=== PATIENT | female | born 1965 | race Caucasian/White ===

== ENCOUNTER 2017-07-28 20:56 | Emergency (ER) | payer OTHER ==
[~2017-07-28] VITALS: Ht 162.6 cm; Wt 64.8 kg
[2017-07-28 21:22] VITALS: TEMP 37.4; Ht 162.6 cm; Wt 64.8 kg
[2017-07-28] MEDS ORDERED: NORCO 5/325MG HOME PACK PO STA (21:55)
[2017-07-28] MEDS ORDERED: AMOXICIL/CLAVU 875MG HOME PACK PO STA (21:55)
[2017-07-28] MEDS ORDERED: CHLORASEPTIC 1.4% SOLN 180 ML BTL MT STA (21:55)
[2017-07-28] MEDS ORDERED: AMOX875T PO (21:58)
[2017-07-28] MEDS ORDERED: HYDR-5688 PO (21:58)
--- NOTE | 2017-07-28 21:59 | EMERGENCY ROOM VISIT NOTE ---
ED Visit Note First contact with patient: 21:44 CHIEF COMPLAINT: "Infection on right side of mouth to apply". HISTORY OF PRESENT ILLNESS: This 51-year-old female patient presented to the emergency department via private vehicle with a progressive toothache for past 3 days. The patient believes it is coming from left upper dentition where a filling fell out. The pain is now steady and severe and radiates to the face. The patient does not a dentist appointment set up, as she notes she cannot see a dentist until August 12 until she has insurance coverage. They rate their pain a 7/10. Denies facial swelling or fever. The patient denies any discharge from the mouth. She notes it radiates to the left eye and to the throat. REVIEW OF SYSTEMS: A 6 system review of systems was completed with positives and pertinent negatives listed in the HPI. ALLERGIES: As noted below MEDICATIONS: As noted below PMH: Asthma, bronchitis, pneumonia SOCIAL HISTORY: Patient lives locally PHYSICAL EXAM: Vitals are noted on the nurse's note and reviewed by myself. Vital signs stable. Temperature 37.4C orally. GENERAL: 51-year-old female, in no acute distress, nondiaphoretic, well-developed well-nourished. Mouth: The left upper tooth is very carious and the gum is swollen and tender around it , without any discharge or signs of an abscess. The remainder of the pharynx and tonsils are without erythema, edema, or exudate. The airway is patent. There is no facial swelling, cervical or submandibular lymphadenopathy. No pain with EOMs. The patient appears uncomfortable and in pain. The patient has overall fair dental hygiene. EARS: External auditory canals clear, tympanic membranes pearly valiente without erythema or effusion bilaterally. ED COURSE: Patient was seen and evaluated as above. There is no facial edema on my examination. The left upper dentition, around tooth #14 does elicit a fair amount of decay, with erythema. No evidence of abscess. No evidence of facial or orbital cellulitis. She communicates well without difficulty. No evidence of retropharyngeal or pharyngeal abscess. No evidence of Xander angina. I suspect she will do well with a course of Augmentin, as well as a short course of pain medication. She was educated upon management, and is to return with worsening symptoms. She is to follow with her dentist for definitive management. She was educated upon worrisome symptoms which to return , had questions of reddish, and was discharged home in good condition. She was given [place] for pain, Augmentin for the infection, and phenol spray for the sore throat. In the treatment of this patient controlled medication was utilized and therefore the [facility], Prescription Drug Monitoring Program website was utilized to look up this patient. No concerns were identified that would prohibit or alter my treatment decision. In the evaluation and treatment of this patient, the following differential diagnoses were considered: Periapical Abscess, Osteonecrosis of the Jaw, Dental Fracture, Dental Caries, Xander's Angina, Vincent's Angina, Facial Cellulitis. Current/Historical Medications Scheduled Amoxicillin & Pot Clavulanate (Augmentin 875-125 mg), 1 TAB PO BID Ascorbic Acid (Vitamin C), 500 MG PO DAILY Multiple Vitamins W/ Minerals (Womens One Daily), 1 TAB PO DAILY Scheduled PRN Albuterol (Ventolin Hfa), 2 PUFFS INH QID PRN for SOB/Wheezing Fluticasone Propionate (Nasal) (Flonase Allergy Relief), 2 SPRAYS [place] DAILY PRN for Allergy Symptoms Hydrocodone/Acetaminophen 5MG/325MG ([place] 5MG/325MG), 1-2 TABLET PO Q6H PRN for Pain Mmtujcfbjkgvh-Vfrgxdejyi-Umsca (Vicks Dayquil/Nyquil Cold), 1 DOSE PO UD PRN for Cold/Flu Symptoms Allergies Coded Allergies: Bee Venom (Verified Allergy, Severe, ANAPHYLAXIS, 07/28/17) Codeine (Verified Allergy, Intermediate, Itchiness, 07/28/17) Morphine (Verified Allergy, Intermediate, Itchiness, 07/28/17) Vital Signs Date Time Temp Pulse Resp B/P (MAP) Pulse Ox O2 Delivery O2 Flow Rate FiO2 07/28/17 22:20 61 20 128/76 98 07/28/17 21:22 37.4 62 20 136/70 96 Room Air Medications Administered Medications (Trade) Dose Ordered Sig/Nadine Route Start Time Stop Time Status Last Admin Dose Admin Amoxicillin/ Clavulanate Potassium (Augmentin 875MG Home Pack) 1 homepack UD STAT PO 07/28/17 21:55 07/28/17 21:58 DC 07/28/17 22:15 1 HOMEPACK Acetaminophen/ Hydrocodone Bitart ([place] 5/325mg Home Pack) 1 homepack UD STAT PO 07/28/17 21:55 07/28/17 21:58 DC 07/28/17 22:15 1 HOMEPACK Phenol (Chloraseptic 1.4% [place]) 1 sprays NOW STAT MT 07/28/17 21:55 07/28/17 22:04 DC 07/28/17 22:15 1 SPRAYS Departure Information Impression Primary Impression: Odontalgia Dispostion Home / Self-Care Condition GOOD Prescriptions Hydrocodone/Acetaminophen 5MG/325MG ([place] 5MG/325MG) Tab 1-2 TABLET PO Q6H Y for Pain, #15 TAB For Initial Treatment Prov: Neno Garcia PA-C 07/28/17 Amoxicillin & Pot Clavulanate (Augmentin 875-125 mg) 1 Tab Tab 1 TAB PO BID for 9 Days, #18 TAB Prov: Neno Garcia PA-C 07/28/17 Referrals La Aleman M.D. (PCP) Patient Instructions My [facility] Additional Instructions You have been treated in the Emergency Department for Dental Pain. You have received pain medicine in the emergency department which impairs your ability to operate a vehicle. It is illegal for you to drive after receiving these medicines. You have been prescribed NORCO to be used for pain control. This is a narcotic medication. You cannot drive or consume alcohol while on this medicine. This medicine should only be used for pain that cannot be controlled with over-the- counter pain medicines. PLEASE NO TYLENOL OR ACETAMINOPHEN WITH THIS You were prescribed AUGMENTIN to be taken every 12 hours. This is an antibiotic. All antibiotics have the potential to cause diarrhea. Stop this medication and contact a medical provider if you were to develop any significant adverse side effects including: wheezing, shortness of breath, passing out, vomiting, or a diffuse rash. Always take antibiotics as directed and COMPLETE the ENTIRE course regardless of the improvement of your symptoms. For pain control, you can use the following xlsp-peh-iyxazbr medicines (if >12 yo): - Regular strength (325mg/tab) Tylenol (acetaminophen) 2 tabs every 4-6 hours as needed. Do not exceed 12 tablets in a 24 hour period. Avoid taking more than 3 grams (3000 mg) of Tylenol per day. This includes any other sources of acetaminophen you may take on a regular basis. - Regular strength (200 mg/tab) Advil (ibuprofen) 1-2 tabs every 4-6 hours as needed. Do not exceed a dose of 3200 mg per day. Refrain from smoking cigarettes or using chewing tobacco until you have been evaluated by your dentist. Keeping beverages lukewarm and consuming soft foods can decrease your pain. Warm compresses over the affected area may offer some relief. You MUST seek evaluation of your dental pain by a dentist following your visit to the Emergency Department. The Emergency Department is not capable of treating dental issues long-term. You should call your dentist as soon as possible to make an appointment for evaluation of your dental pain. Return to the emergency department if you develop the following symptoms despite treatment course outlined above: fever, intractable pain, increased redness, swelling, or purulent discharge.
[2017-07-28] MEDS ORDERED: PRVHFAIN INH (22:19)
[2017-07-28] MEDS ORDERED: FLUT0.15 NAE (22:19)
[2017-07-28] MEDS ORDERED: MULT-240 PO (22:19)
[2017-07-28] MEDS ORDERED: PHEN1MIS16 PO (22:19)
[2017-07-28] MEDS ORDERED: ASCO500C3 PO (22:19)
[2017-07-28 22:20] VITALS: BP 128/76; PULSE 61; O2SAT 98
== END 2017-07-28 22:22 | disposition home or self-care (01) ==
LOC: C.EDB 20:59 → C.EDD 22:22
DX: K08.89 Other specified disorders of teeth and supporting structures (principal); J45.909 Unspecified asthma, uncomplicated; Z88.5 Allergy status to narcotic agent; Z91.030 Bee allergy status

== ENCOUNTER 2017-11-23 20:51 | Emergency (ER) | payer OTHER ==
[~2017-11-23 20:51] MED LIST: ASCO500C3 PO; FLUT0.15 NAE; HYDR-5688 PO; MULT-240 PO; PHEN1MIS16 PO; PRVHFAIN INH
[2017-11-23 21:06] VITALS: TEMP 37; Ht 162.6 cm
[2017-11-23] MEDS ORDERED: DIAZEPAM INJ 5 MG/ML 2 ML CARP IV STA (23:02)
[2017-11-23] MEDS ORDERED: FENTANYL CITRATE INJ 50 MCG/1 ML 2 ML VIAL IV ONE (23:15)
--- NOTE | 2017-11-23 23:30 | EMERGENCY ROOM VISIT NOTE ---
History Report prepared by Geovanna: Alfie Hernandez Under the Supervision of: Dr. Jeannette Cueto D.O. (Jeannette Cueto, DO) First contact with patient: 22:44 (Jeannette Cueto, DO) Chief Complaint: BACK PAIN Stated Complaint: BACK ACHE, WAIST, RIGHT ARM NUMB History of Present Illness The patient is a 52 year old female who presents to the Emergency Room with complaints of worsening, severe, lower back pain beginning last night. The patient states her discomfort wraps around to the front of her body through her hips and spreads down the front of her legs. She reports she went to sleep and woke up with the same pain. The patient notes her pain started radiating to her arms and neck. She states she was able to get out of bed today, but her symptoms worsened this evening. The patient reports she tried taking ibuprofen, but it did not help. She notes her whole right arm, right hand, and upper right leg are numb. The patient states she cannot move without intensifying her discomfort. She report she felt rundown and started taking probiotics. The patient notes she is not able to eat or drink anything either. She states the only thing she did different was sleep on the couch. The patient reports she fell on ice a month ago. She notes she has a history of a rotator cuff repair and does not know if that is the cause for her symptoms. The patient denies lifting anything odd, changing her activity, fevers, chills, numbness and tingling to her groin, trouble urinating, trouble moving her bowels, trying Tylenol, and a family history of rheumatoid problems. Source of History: patient Onset: last night Position: back (lower) Symptom Intensity: severe Timing: worsening Associated Symptoms: + neck pain, No fevers, No chills Note: Associated symptoms: pain radiating to her hips and the front of her legs, arm pain and numbness, right hand numbness, right leg is numb, inability to eat or drink Denies: lifting anything odd, changing her activities, numbness and tingling to her groin, trouble urinating, trouble moving her bowels (Jeannette Cueto, ) Review of Systems See HPI for pertinent positives & negatives. A total of 10 systems reviewed and were otherwise negative. (Jeannette Cueto, DO) Past Medical & Surgical Medical Problems: (1) Asthma (2) Bronchitis (3) PNA (pneumonia) (Arash Peters M.D.) Family History Patient reports no known family medical history. (Jeannette Cueto DO) Patient reports no known family medical history. (Arash Peters M.D.) Social History Smoking Status: Current Every Day Smoker Alcohol Use: none Marital Status: in relationship Housing Status: lives with significant other (Jeannette Cueto DO) Current/Historical Medications Scheduled Ascorbic Acid (Vitamin C), 500 MG PO DAILY Lidocaine (Lidocaine), 1 PATCH TD DAILY Multiple Vitamins W/ Minerals (Womens One Daily), 1 TAB PO DAILY Scheduled PRN Albuterol (Ventolin Hfa), 2 PUFFS INH QID PRN for SOB/Wheezing Diazepam (Valium), 5 MG PO Q8 PRN for Pain Fluticasone Propionate (Nasal) (Flonase Allergy Relief), 2 SPRAYS [place]ITLEY DAILY PRN for Allergy Symptoms Hydrocodon/Acetaminophen 5MG/300MG (Vicodin (5MG/300MG)), 1 TAB PO Q8 PRN for Pain Allergies Coded Allergies: Bee Venom (Verified Allergy, Severe, ANAPHYLAXIS, 11/23/17) Codeine (Verified Allergy, Intermediate, Itchiness, 11/23/17) Morphine (Verified Allergy, Intermediate, Itchiness, 11/23/17) Physical Exam Vital Signs Date Time Temp Pulse Resp B/P (MAP) Pulse Ox O2 Delivery O2 Flow Rate FiO2 11/24/17 02:47 58 18 121/76 98 11/24/17 01:52 52 18 116/71 96 Room Air 11/23/17 23:39 59 18 127/85 95 Room Air 11/23/17 21:06 37.0 72 18 122/66 95 Room Air (Arash Peters M.D.) Physical Exam GENERAL: alert, well appearing, well nourished, no distress, non-toxic EYE EXAM: normal conjunctiva, PERRL and EOM's grossly intact OROPHARYNX: no exudate, no erythema, lips, buccal mucosa, and tongue normal and mucous membranes are moist NECK: supple, no nuchal rigidity, no adenopathy, non-tender LUNGS: Clear to auscultation. Normal chest wall mechanics HEART: no murmurs, S1 normal and S2 normal ABDOMEN: abdomen soft, non-tender, normo-active bowel sounds, no masses, no rebound or guarding. HIP: Pain in the bilateral hip upon palpation. BACK: Back is symmetrical on inspection and there is no deformity, no midline tenderness, no CVA tenderness. SKIN: no rashes and no bruising UPPER EXTREMITIES: upper extremities are grossly normal. Subjective altered sensation to the right upper extremity. LOWER EXTREMITIES: No pitting edema. Sensory exam normal. MSK: Positive straight leg on the right, negative on left. Decreased ROM on the right secondary to pain. NEURO EXAM: Normal sensorium, cranial nerves II-XII intact, normal speech. (Jeannette Cueto, ) Medical Decision & Procedures ER Provider Diagnostic Interpretation: CT:Per my review, radiologist interpretation. CT ABDOMEN & PELVIS without contrast: Scattered fluid in small bowel loops, nonspecific, can be seen with enteritis in the appropriate clinical setting. NO evidence of bowel obstruction. Bilateral nonobstructing renal calculi. No hydronephrosis or ureteral stone. Left adrenal thickening. Bibasilar atelectatic changes. CT L SPINE: No evidence of acute fracture or subluxation. CT C SPINE: Degenerative changes without evidence of acute fracture. For all studies: Radiologist: Kelly Haskins MD (Jeannette Cueto, DO) Laboratory Results Test 11/23/17 00:38 Urine Color YELLOW Urine Appearance CLEAR (CLEAR) Urine pH 5.5 (4.5-7.5) Urine Specific [place] 1.026 (1.000-1.030) Urine Protein NEG (NEG) Urine Glucose (UA) NEG (NEG) Urine Ketones TRACE (NEG) Urine Occult Blood NEG (NEG) Urine Nitrite NEG (NEG) Urine Bilirubin NEG (NEG) Urine Urobilinogen NEG (NEG) Urine Leukocyte Esterase TRACE (NEG) Urine WBC (Auto) 5-10 /hpf (0-5) Urine RBC (Auto) 0-4 /hpf (0-4) Urine Hyaline Casts (Auto) 1-5 /lpf (0-5) Urine Epithelial Cells (Auto) >30 /lpf (0-5) Urine Bacteria (Auto) NEG (NEG) Urine Crystals CALCIUM OXALATE (NONE (Arash Peters M.D.) Laboratory results per my review. (Jeannette Cueto, DO) Medications Administered Medications (Trade) Dose Ordered Sig/Nadine Route Start Time Stop Time Status Last Admin Dose Admin Fentanyl Citrate (Fentanyl Inj) 50 mcg NOW ONCE IV 11/23/17 23:15 11/23/17 23:16 DC 11/23/17 23:43 50 MCG Diazepam (Valium Inj) 2.5 mg NOW STAT IV 11/23/17 23:02 11/23/17 23:05 DC 11/23/17 23:43 2.5 MG Ketorolac Tromethamine (Toradol Inj) 30 mg NOW STAT IV 11/24/17 00:41 11/24/17 00:42 DC 11/24/17 00:54 30 MG Diphenhydramine HCl (Benadryl Inj) 25 mg NOW STAT IV 11/24/17 01:07 11/24/17 01:08 DC 11/24/17 01:20 25 MG Lidocaine (Lidoderm Patch 5%) 1 patch NOW STAT TD 11/24/17 01:22 11/24/17 01:23 DC 11/24/17 01:51 1 PATCH Acetaminophen (Tylenol Tab) 1,000 mg NOW STAT PO 11/24/17 01:22 11/24/17 01:23 DC 11/24/17 01:51 1,000 MG (Arash Peters M.D.) ED Course 2255: The patient was evaluated in room C05. A complete history and physical exam was performed. 2302: Ordered Diazepam 2.5mg IV 2315: Ordered Fentanyl Citrate 50mcg IV 0034: Ordered Ketorolac Tromethamine 60 mg IM 041: Ordered Ketorolac Tromethamine 30 mg IV 0107: Ordered Diphenhydramine HCl 25mg IV 0116: Upon reevaluation, the patient is feeling better. She is more relaxed, her neck pain is gone, but she still has low back pain. I discussed the findings and the treatment plan with the patient. She verbalizes agreement and understanding. The patient will be discharged home after she receives pain medication. 0122: Ordered Acetaminophen 1000mg PO, Lidocaine 1patch TD (Jeannette Cueto, DO) Medical Decision Differential diagnoses includes but is not limited to lumbar radiculopathy, muscle strain, facture, cauda equina, mass, and disc herniation. (Jeannette Cueto, ) Was told by pharmacy that patient was unable to fill Rx. Upon review of note, patient PDMP reviewed w/ Rx's for controlled substances filled in July and August for < 12 tabs each. No other recent Rx's. Rx was for Vicodin. Only [place] available. Old Rx cancelled and new one w/ [place] transmitted for original 10 tabs Q8H. ER pharmacist called original pharmacy to cancel original Rx. (Arash Peters M.D.) [place] Drug [place] Results: patient reviewed within database, no issues identified, see additional documentation Drug Monitoring Findings: In August the patient had a prescription for 12 Percocet. Proceeding that in July, the patient had a script for 15 of Vicodin. (Jeannette Cueto, ) Medication Reconcilliation Current Medication List: was personally reviewed by me (Jeannette Cueto, ) Blood Pressure Screening Patient's blood pressure: Normal blood pressure Blood pressure disposition: Did not require urgent referral (Jeannette Cueto, ) Impression Primary Impression: Low back pain Additional Impressions: Lumbar radiculopathy Neck pain Cervical radiculopathy Scribe Attestation The scribe's documentation has been prepared under my direction and personally reviewed by me in its entirety. I confirm that the note above accurately reflects all work, treatment, procedures, and medical decision making performed by me. (Jeannette Cueto, ) Departure Information Dispostion Home / Self-Care Prescriptions Hydrocodone/Acetaminophen 5MG/325MG ([place] 5MG/325MG) Tab 1 TABLET PO Q8 Y for Pain, #10 TAB Prov: Arash Peters M.D. 11/24/17 Hydrocodon/Acetaminophen 5MG/300MG (VICODIN (5MG/300MG)) 1 Tab Tab 1 TAB PO Q8 Y for Pain, #10 TAB Prov: Jeannette Cueto DO 11/24/17 Lidocaine (LIDOCAINE) 5 % Pad 1 PATCH TD DAILY, #1 BOX Prov: Jeannette Cueto, 11/24/17 Diazepam (Valium) 5 Mg Tab 5 MG PO Q8 Y for Pain, #10 TAB Prov: Jeannette Cueto DO 11/24/17 Referrals La Aleman M.D. (PCP) Forms HOME CARE DOCUMENTATION FORM, IMPORTANT VISIT INFORMATION Patient Instructions [facility] Additional Instructions Please follow up with your family doctor as additional testing may be needed. You may also call and follow-up with the orthopedic surgeon listed as well. You may require additional imaging including an MRI if your symptoms persist, or even additional blood work to look for other causes of your symptoms. You may use the medications prescribed. Do not take muscle relaxers or pain medications and drive or drink alcohol. Please make sure you're drinking plenty of water. Please avoid any heavy lifting or strenuous activity. If you develop worsening pain, increased numbness or tingling, develop numbness or tingling around her groin, noticed a change in your bowel or bladder function, develop fevers, dizziness, are unable to walk, or you have any other new concerns, please return the emergency room. Problem Qualifiers Primary Impression: Low back pain Chronicity: acute Back pain laterality: right Sciatica presence: with sciatica Sciatica laterality: sciatica of right side Qualified Codes: M54.41 - Lumbago with sciatica, right side
[2017-11-24] MEDS ORDERED: KETOROLAC TROMETHAMINE 60 MG/2 ML VIAL IM STA (00:34)
[2017-11-24] MEDS ORDERED: KETOROLAC TROMETHAMINE 30 MG/ML VIAL IV STA (00:41)
[2017-11-24] MEDS ORDERED: DiphenhydrAMINE HCL 50 MG/ML VIAL IV STA (01:07)
[2017-11-24] MEDS ORDERED: LIDODERM (LIDOCAINE) PATCH 5% TD STA (01:22)
[2017-11-24] MEDS ORDERED: ACETAMINOPHEN 500 MG TAB PO STA (01:22)
[2017-11-24] MEDS ORDERED: LIDO1PAD2 TD (02:20)
[2017-11-24] MEDS ORDERED: DIAZ-165 PO (02:20)
[2017-11-24] MEDS ORDERED: HYDR-3419 PO (02:20)
[2017-11-24 02:47] VITALS: BP 121/76; PULSE 58; O2SAT 98
--- NOTE | 2017-11-24 06:53 | DIAGNOSTIC IMAGING REPORT ---
ABD/PELVIS NO IV OR ORAL CONT CT DOSE: 301.35 mGy.cm HISTORY: Pain back pain TECHNIQUE: Multiaxial CT images of the abdomen and pelvis were performed without contrast. A dose lowering technique was utilized adhering to the principles of ALARA. COMPARISON STUDY: None. FINDINGS: Lung bases are clear. Liver spleen and pancreas are unremarkable. Bilateral nonobstructing renal calcifications. No evidence for an obstructing urinary tract calculus. Bowel pattern is considered nonobstructive. Mild bladder prolapse. Poor visibility of the appendix although no significant Right lower quadrant inflammatory changes are present. IMPRESSION: No significant abnormality identified within the abdomen or pelvis. Bilateral nonobstructing renal calcifications. The above report was generated using voice recognition software. It may contain grammatical, syntax or spelling errors. Electronically signed by: Brandon Paul M.D. 11/24/2017 6:52 AM Dictated Date/Time: 11/24/2017 6:50 AM
--- NOTE | 2017-11-24 07:14 | DIAGNOSTIC IMAGING REPORT ---
LUMBAR SPINE CT CT DOSE: HISTORY: back pain, hip pain TECHNIQUE: Multiaxial CT images of the lumbar spine were performed and reformatted in the sagittal and coronal plane without the use of contrast. A dose lowering technique was utilized adhering to the principles of ALARA. COMPARISON: None. FINDINGS: No fracture or subluxation within the lumbar spine. S1 is demonstrated to be a transitional vertebra with a hypoplastic S1-S2 disc space. 1 cm sclerotic focus within the L5 vertebral body likely represents a bone island. Moderate to space narrowing at L1-L2 with a small broad-based posterior disc bulge at this level. No significant central canal or neural foraminal narrowing by CT technique. Bilateral nephrolithiasis. No hydronephrosis. Paraspinal soft tissues are unremarkable. IMPRESSION: No fractures within the lumbar spine. Electronically signed by: Antoine Stanford M.D. 11/24/2017 7:13 AM Dictated Date/Time: 11/24/2017 7:10 AM
--- NOTE | 2017-11-24 07:25 | DIAGNOSTIC IMAGING REPORT ---
CT OF THE CERVICAL SPINE WITHOUT CONTRAST CLINICAL HISTORY: Neck pain. Right upper extremity pain. COMPARISON STUDY: No previous studies for comparison. TECHNIQUE: Helical axial images of the cervical spine were obtained without IV contrast. Sagittal and coronal reconstructions were viewed. A dose lowering technique was utilized adhering to the principles of ALARA. FINDINGS: Alignment of the cervical spine is anatomic. The craniocervical junction is intact. There is no fracture or suspicious lesion within the cervical spine by CT. There is moderate disc space narrowing and osteophytosis at C4-C5, C5-C6 and C6-C7. There is moderate multilevel facet arthrosis. There is no prevertebral edema. Central canal and neural foramen are suboptimally assessed by CT. IMPRESSION: 1. No acute cervical spine fracture or subluxation. 2. Moderate disc space narrowing and osteophytosis at C4-C5, C5-C6 and C6-C7 with moderate multilevel facet arthrosis. Electronically signed by: Lyndon Villegas M.D. 11/24/2017 7:23 AM Dictated Date/Time: 11/24/2017 7:20 AM
--- NOTE | 2017-11-24 10:39 | Pharmacy Progress Note ---
ED Pharmacist Progress Note Date of Service: Nov 24, 2017. Received message from [employer] stating [facility] called with problems on patient's Rx's. I called this pharmacy and they stated the Rx for Vicodin 5/300mg cannot be filled because they do not have it in stock and will not order the medication for this patient. They are requesting a new Rx for [place] 5/325mg instead. Dr Cueto is the original ordering provider. I will forward this information to one of the provider's on dayshift.
[2017-11-24] MEDS ORDERED: HYDR-5688 PO (17:53)
== END 2017-11-24 02:48 | disposition home or self-care (01) ==
LOC: C.EDB 20:51
DX: M54.16 Radiculopathy, lumbar region (principal); M54.12 Radiculopathy, cervical region; M54.41 Lumbago with sciatica, right side; M25.551 Pain in right hip; M25.552 Pain in left hip; R20.0 Anesthesia of skin; J45.909 Unspecified asthma, uncomplicated; Z87.01 Personal history of pneumonia (recurrent); Z87.09 Personal history of other diseases of the respiratory system; F17.200 Nicotine dependence, unspecified, uncomplicated; Z88.5 Allergy status to narcotic agent; Z91.030 Bee allergy status

== ENCOUNTER 2017-12-08 11:21 | Emergency (ER) | payer OTHER ==
[~2017-12-08] VITALS: Ht 162.6 cm; Wt 61.7 kg
[~2017-12-08 11:21] MED LIST changes: +DIAZ-165 PO; +HYDR-3419 PO; +LIDO1PAD2 TD; -PHEN1MIS16 PO
[2017-12-08 11:33] VITALS: TEMP 36.8; Ht 162.6 cm; Wt 61.7 kg
[2017-12-08] MEDS ORDERED: IBUPROFEN 200 MG TAB PO STA (11:46)
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
--- NOTE | 2017-12-08 13:27 | DIAGNOSTIC IMAGING REPORT ---
ULTRASOUND R VENOUS DOPP LOWER EXT UNILAT CLINICAL HISTORY: Posterior R knee pain COMPARISON STUDY: No previous studies for comparison. FINDINGS: Real-time and color flow Doppler imaging were performed. Flow was seen within the femoral, popliteal and calf veins with no intraluminal thrombus demonstrated. The saphenous vein is patent. IMPRESSION: No evidence of right lower extremity DVT. Electronically signed by: Cesar Ferris M.D. 12/08/2017 1:26 PM Dictated Date/Time: 12/08/2017 1:25 PM
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
[2017-12-08 14:09] VITALS: BP 133/81; PULSE 67; O2SAT 97
== END 2017-12-08 14:11 | disposition home or self-care (01) ==
LOC: C.ED 11:22 → C.EDD 14:11
DX: M25.561 Pain in right knee (principal); V49.9XXA Car occupant (driver) (passenger) injured in unspecified traffic accident, initial encounter; Y92.410 Unspecified street and highway as the place of occurrence of the external cause; J45.909 Unspecified asthma, uncomplicated; Z87.01 Personal history of pneumonia (recurrent); F17.210 Nicotine dependence, cigarettes, uncomplicated